=== PATIENT | male | born 1985 | race Caucasian/White ===

== ENCOUNTER → 2022-09-13 15:53 | Outpatient (CLI) | payer OTHER, SELFPAY ==
--- NOTE | 2022-09-13 16:06 | ECG_ITS ---
APPROVED REPORT Exam: Resting ECG HR:75 bpm ECG Measurements Heart Rate 75 AXES UT 163 P -14 QRSd 166 QRS -32 QT 387 T 16 QTc 416 Conclusion SINUS RHYTHM WITH OCCASIONAL VENTRICULAR PREMATURE COMPLEXES LEFT AXIS DEVIATION [QRS AXIS < -30] RIGHT BUNDLE BRANCH BLOCK [120+ ms QRS DURATION, UPRIGHT V1, 40+ ms S IN I/aVL/V4/V5/V6] POSSIBLE LEFT VENTRICULAR HYPERTROPHY [VOLTAGE CRITERIA PLUS LAE OR QRS WIDENING] ABNORMAL ECG UNCONFIRMED REPORT Electronically signed by : Jorge Galvan MD 09/13/2022 18:35:08
[2022-09-13 17:51] LABS: Basophils % 0.7 % (0.1-2.0); Eosinophils # 0.1 K/mm3 (0.0-0.4); Eosinophils % 1.3 % (0.1-12.0); Hematocrit 46.6 % (42.0-52.0); Hemoglobin 15.4 g/dL (14.1-18.0); Lymphocytes # 1.2 K/mm3 (0.7-4.5); Lymphocytes % 22.2 % (10-50); Mean Corpuscular HGB Conc 33.1 g/dL (31.8-35.4); Mean Corpuscular Hemoglobin 29.8 pg (27.0-31.2); Mean Corpuscular Volume 89.9 fl (80-94); Mean Platelet Volume 8.2 fl (7.4-10.4); Monocytes # 0.3 K/mm3 (0.1-1.0); Monocytes % 4.9 % (1.7-9.3); Neutrophils # 3.9 K/mm3 (1.8-7.8); Neutrophils % 70.9 % (37.0-80.0); Platelet Count 259 K/mm3 (142-424); Red Blood Count 5.18 M/mm3 (4.60-6.20); Red Cell Distribution Width 13.7 % (11.5-17.5); White Blood Count 5.5 K/mm3 (4.8-10.8)
[2022-09-13 18:10] LABS: Chloride 103 mmol/L (98-107); Potassium 4.2 mmoL/L (3.5-5.1); Sodium 142 mmol/L (136-145)
[2022-09-13 18:12] LABS: Blood Urea Nitrogen 14 mg/dl (9-20); Estimated Glomerular Filt Rate 83 ml/min (>60); GFR (African American) 101 ML/MIN (>60)
[2022-09-13 18:13] LABS: Alanine Aminotransferase 21 U/L (12-78); Albumin Level 4.6 g/dl (3.5-5.0); Albumin/Globulin Ratio 1.7 (1.1-1.8); Alkaline Phosphatase 65 U/L (38-126); Anion Gap 12.2 mEq/L (5-15); Aspartate Amino Transferase 27 U/L (17-59); Bilirubin,Total 1.2 mg/dl (0.2-1.3); Calcium 9.1 mg/dl (8.4-10.2); Carbon Dioxide 31 mmol/L (22.0-30.0); Globulin 2.7 g/dL (1.3-3.2); Glucose 90 mg/dl (74-100); Total Protein,Serum 7.3 g/dl (6.3-8.2)
== END ==
PROVIDERS: PCP Family Medicine; Visit Provider Otolaryngology
DX: Z01.818 Encounter for other preprocedural examination (principal); J34.2 Deviated nasal septum; J34.3 Hypertrophy of nasal turbinates
CPT/HCPCS: 36415; 80053; 85025; 93005

== ENCOUNTER → 2022-09-20 08:50 | Day surgery (SDC) | payer OTHER, SELFPAY ==
[2022-09-18 13:49] VITALS: BMI 26.4
[2022-09-20 09:59] VITALS: BP 131/93; PULSE 58; RESP 18; TEMP 36.4; O2SAT 97
--- NOTE | 2022-09-20 10:44 | SUR.PREOP ---
Procedure cancelled/to be reseceduled r/t pt's abnormal EKG. Appointment made w/ cardiology today at 2pm for evaluation. Loida Jorge in Dr Liz's office notified and is to f/u w/ patient to coordinate rescheduling surgery.
== END ==
PROVIDERS: PCP Family Medicine; Visit Provider Otolaryngology
PROC: (CPT 30520; principal; 2022-09-20 10:15)
DX: Z53.09 Procedure and treatment not carried out because of other contraindication (principal); R94.31 Abnormal electrocardiogram [ECG] [EKG]; J34.2 Deviated nasal septum; J34.3 Hypertrophy of nasal turbinates; R09.81 Nasal congestion
CPT/HCPCS: 30520

== ENCOUNTER → 2022-09-20 14:52 | Outpatient (CLI) | payer OTHER, SELFPAY ==
[2022-09-20 15:36] LABS: Alanine Aminotransferase 17 U/L (12-78); Albumin Level 4.6 g/dl (3.5-5.0); Alkaline Phosphatase 67 U/L (38-126); Aspartate Amino Transferase 23 U/L (17-59); Bilirubin,Direct 0.2 mg/dl (0.0-0.4); Bilirubin,Indirect 0.7 mg/dL (0.0-0.9); Bilirubin,Total 0.9 mg/dl (0.2-1.3); Bilirubin,Unconjugated 0.7 mg/dL (0.0-1.1); Chol/HDL Ratio 3.8 (1-3.5); Cholesterol 149 mg/dl (140-200); HDL Cholesterol 39 mg/dl (40-60); Total Protein,Serum 7.3 g/dl (6.3-8.2); Triglycerides 147 mg/dl (30-150); VLDL Cholesterol 29 mg/dL (0-40)
[2022-09-20 15:47] LABS: Direct LDL Cholesterol 89.79 mg/dL (100-129)
== END ==
PROVIDERS: PCP Family Medicine; Visit Provider Nurse Practitioner
DX: Z01.810 Encounter for preprocedural cardiovascular examination (principal); R00.1 Bradycardia, unspecified; R94.31 Abnormal electrocardiogram [ECG] [EKG]
CPT/HCPCS: 36415; 80061; 80076

== ENCOUNTER → 2022-10-02 15:21 | Outpatient (CLI) | payer OTHER, SELFPAY | PROVIDERS: PCP Family Medicine; Visit Provider Nurse Practitioner | DX: Z01.810 Encounter for preprocedural cardiovascular examination (principal); R00.1 Bradycardia, unspecified; R94.31 Abnormal electrocardiogram [ECG] [EKG] | CPT/HCPCS: 93306 ==

== ENCOUNTER → 2022-10-19 08:30 | Outpatient (CLI) | payer OTHER, SELFPAY ==
--- NOTE | 2022-10-19 08:30 | CA_ITS ---
APPROVED REPORT Exam: Exercise Treadmill Technologist: Maria Dolores Goldsmith, Ht: 6 ft 1 in Wt: 192 lbs BSA: 2.11 m2 HR: 50 bpm BP: 101/71 mmHg Rhythm: sinus dasia, RBBB, PVC Medical History Medications: Flonase,,,,, Stress Test Details Test: Keegan HR Resting HR: 67 bpm Max Heart Rate (APMHR): 181.652727 bpm Max HR Achieved: 171 bpm Target HR (85% APMHR): 153.976781 bpm % of APMHR: 94.48 Recovery HR: 112 bpm BP Resting BP: 136/86 mmHg Max BP: 190/88 mmHg Recovery BP: 189.0/91.0 mmHg ECG Resting ECG: sinus dasia, RBBB, PVC Clinical Exercise duration: 12:00 min Highest Stage Achieved: Exercise capacity: 12.8 METs Stress ECG Conclusion During keegan protocol pt exercised total of 12 minutes, no CP noted. Rare PVC noted. Lateral T wave inversions with 1-2m of horizontal ST depression. EKG changes diagnostic of ischemia but down due to baseline RBBB. GXT only. Test Summary REST . . . . . . . Sitting REST . . . . . . . Standing REST 04:36 0.0 0.0 67 . 136/ 86 . . Stage 1 01:00 10.0 1.7 83 . . . . Stage 1 02:00 10.0 1.7 86 . . . . Stage 1 03:00 10.0 1.7 83 . 156/ 84 . . Stage 2 01:00 12.0 2.5 99 . . . . Stage 2 02:00 12.0 2.5 102 . . . . Stage 2 03:00 12.0 2.5 101 . 164/ 86 . . Stage 3 01:00 14.0 3.4 126 . . . . Stage 3 02:00 14.0 3.4 128 . . . . Stage 3 03:00 14.0 3.4 129 . 190/ 88 . . Stage 4 01:00 16.0 4.2 151 . . . . Stage 4 02:00 16.0 4.2 152 . . . . Stage 4 03:00 16.0 4.2 167 . . . Stop exercise at 12:00 RECOVERY 01:00 0.0 0.0 112 . . . . RECOVERY 02:00 0.0 0.0 91 . . . . RECOVERY 03:00 0.0 0.0 82 . 189/ 91 . . RECOVERY 04:00 0.0 0.0 80 . 158/ 83 . . RECOVERY 05:00 0.0 0.0 84 . 142/ 83 . . RECOVERY 05:18 0.0 0.0 79 . 142/ 83 . . Electronically signed by : Raul Huitron MD 10/20/2022 10:19:26
== END ==
PROVIDERS: PCP Family Medicine; Visit Provider Nurse Practitioner Family
DX: Z01.810 Encounter for preprocedural cardiovascular examination (principal); R94.31 Abnormal electrocardiogram [ECG] [EKG]
CPT/HCPCS: 93017